=== PATIENT | male | born 2005 | race Caucasian/White ===

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

== ENCOUNTER 2024-06-02 12:56 | Emergency (ER) | payer OTHER, SELFPAY ==
[2024-06-02 13:19] VITALS: BP 109/72; PULSE 71; RESP 16; TEMP 37.1; O2SAT 99
--- NOTE | 2024-06-02 14:09 | ED_ITS ---
HPI - Ear Problem General Chief complaint: Ear Stated complaint: Ear pain/congestion History of Present Illness HPI Narrative: 19-year-old male here with complaints of difficulty hearing out of the right ear. Things that he could possibly have a cerumen impaction. Denies any pain, fever, body aches, chills. MD Complaint: decreased hearing Related Data Home Medications ?Medication ?Instructions ?Recorded ?Confirmed ?Last Taken ?Type No Home Medications 06/02/24 06/02/24 Unknown History Allergies Allergy/AdvReac Type Severity Reaction Status Date / Time No Known Allergies Allergy Verified 06/02/24 13:16 Review of Systems Review of Systems: All systems reviewed & are unremarkable except as noted in HPI and below Eyes: Eyes: Reports as per HPI ENT: Reports as per HPI Cardiovascular: Cardiovascular: Reports as per HPI Respiratory: Respiratory: Reports as per HPI Genitourinary: Genitourinary: Reports as per HPI Musculoskeletal: Musculoskeletal: Reports as per HPI Integumentary/Breasts: Skin/Breast: Reports as per HPI Neurologic: Reports as per HPI Psychiatric: Psychiatric: Reports as per HPI Endocrine: Endocrine: Reports as per HPI Hematologic/Lymphatic: Hematologic/Lymphatic: Reports as per HPI Allergic/Immunologic: Allergic/Immunologic: Reports as per HPI PMFSH Past Medical History Medical History Acute pharyngitis ADD (attention deficit disorder) ADHD (attention deficit hyperactivity disorder) Anxiety Appendix abscess Autism Autism spectrum disorder Back injury Has PT COVID-19 January of 2019 Ear infection as infant Low back pain Surgical History Surgical History No history of previous surgery Family History Family History Mother ADHD Hypertension Depression Anxiety Arthritis Fracture Grandparent Diabetes mellitus Social History Social History Smoking status: Current every day smoker Tobacco type: e-cigarettes/vaping Alcohol intake: never Substance use: current Substance use type: marijuana Lack of Transportation: No Lack of Food: Never True Current Housing: I Have Housing Concerned About Future Housing: No Difficulty Paying Gas/Electric Bills: No Difficulty Paying for Meds: No Currently Unemployed: No Education: High School Diploma/GED Difficulty w/ Childcare or Family Care: No Living arrangements: with family Occupation/Education: student Gender identity (if verbalized by the patient): Male Exam Const: General: cooperative, healthy appearing, comfortable, no acute distress and well developed Orientation/consciousness: patient oriented x3 HENMT: Head: normal to inspection Ears: TM's normal bilaterally (unable to visualize until After cerumen removal) Eyes: General: appearance normal, both eyes and all related structures Resp: Effort & Inspection: normal respiratory effort and able to speak in complete sentences Auscultation: clear to auscultation bilaterally Cardio: Rate: regular rate Rhythm: regular rhythm Heart sounds: S1 normal heart sound present and S2 normal heart sound present Skin: General skin exam: normal color Neuro: General: patient oriented x3 Cognition (Neuro): normal cognition Speech: normal speech Psych: Mental Status: mental status grossly normal Course Course Level of Care: Express Care Visit Vital Signs Vital signs: Vital Signs Temperature 98.8 F 06/02/24 13:19 Pulse Rate 71 06/02/24 13:19 Respiratory Rate 16 06/02/24 13:19 Blood Pressure 109/72 06/02/24 13:19 Pulse Oximetry 99 06/02/24 13:19 Temperature 98.8 F 06/02/24 13:19 Pulse Rate 71 06/02/24 13:19 Respiratory Rate 16 06/02/24 13:19 Blood Pressure 109/72 06/02/24 13:19 Pulse Oximetry 99 06/02/24 13:19 Procedures Ear Wax Removal Both Ears: Ear Wax Removal Date: 06/02/24 Ear Wax Removal Time: 13:50 Cerumenolytic Used: 5-10% Sodium Bicarb solution Results: Re-examined: some cerumen remains TM Examination: TM(s) intact, normal appearance Ear Canal Exam: atraumatic Patient Tolerated Procedure: well Complications: no problems Technique: ear canal irrigated and ear canal curetted Medical Decision Making MDM Narrative Medical decision making narrative: 19-year-old male HPI is noted. Differentials include but not limited to acute otitis media, acute otitis externa, cerumen impaction. Bilateral ears impacted with cerumen. Removed with curette and irrigation. A small amount of wax remains to right ear canal. Tympanic membranes bilaterally normal Vital Signs Vital Signs: Vital Signs Temperature 98.8 F 06/02/24 13:19 Pulse Rate 71 06/02/24 13:19 Respiratory Rate 16 06/02/24 13:19 Blood Pressure 109/72 06/02/24 13:19 Pulse Oximetry 99 06/02/24 13:19 Temperature 98.8 F 06/02/24 13:19 Pulse Rate 71 06/02/24 13:19 Respiratory Rate 16 06/02/24 13:19 Blood Pressure 109/72 06/02/24 13:19 Pulse Oximetry 99 06/02/24 13:19 Discharge Plan Discharge Clinical Impression: Bilateral impacted cerumen Patient Disposition: Home, Self-Care Condition: Stable Instructions: Antibiotic Form, Carbamide Peroxide (Into the ear) Additional Instructions: Use debrox nightly per package directions for the next week or until the rest of the ear wax has come out. Patient Language: Macedonian Prescriptions: No Action No Home Medications Follow-up/Referrals: Georgi Alicia MD [Primary Care Provider] - (if needed for ear irrigation) Time of Disposition: 14:12
== END 2024-06-02 14:15 | disposition home or self-care (01) ==
PROVIDERS: Emergency Provider Nurse Practitioner Family; PCP Family Medicine
DX: H61.23 Impacted cerumen, bilateral (principal); F17.290 Nicotine dependence, other tobacco product, uncomplicated; F84.0 Autistic disorder; Z86.16 Personal history of COVID-19
CPT/HCPCS: 69210; 99202; G0463

== ENCOUNTER 2024-07-10 17:37 | Emergency (ER) | payer OTHER, MEDICAID, SELFPAY ==
--- NOTE | 2024-07-10 17:42 | ED.URI ---
HPI - URI/Sore Throat General Chief Complaint: Upper Respiratory Infection Stated Complaint: RED THROAT/SINUS/EARS Time Seen by Provider: 07/10/24 17:42 Source: patient Mode of arrival: ambulatory Limitations: no limitations History of Present Illness HPI Narrative: Rafael is a 19-year-old male patient presenting to the clinic today with complaints of sore throat, nasal congestion, ear pain x3 days. He reports no known fevers, chills, body aches. Denies any chest pain shortness of breath. Related Data Home Medications ?Medication ?Instructions ?Recorded ?Confirmed ?Last Taken ?Type No Home Medications 06/02/24 06/02/24 Unknown History Allergies Allergy/AdvReac Type Severity Reaction Status Date / Time No Known Allergies Allergy Verified 07/10/24 17:43 Review of Systems Review of Systems: Pertinent positives per HPI. Patient denies any fever, chills, rash, headache, visual changes, dizziness, cough, shortness of breath, chest pain, palpitations, nausea, vomiting, diarrhea, constipation, abdominal pain, or any urinary issues. PMFSH Past Medical History Medical History Low back pain Appendix abscess ADD (attention deficit disorder) Autism Acute pharyngitis Ear infection as COVID-19 January of 2019 Anxiety Autism spectrum disorder ADHD (attention deficit hyperactivity disorder) Back injury Has PT Surgical History Surgical History No history of previous surgery Family History Family History Mother ADHD Hypertension Depression Anxiety Arthritis Fracture Grandparent Diabetes mellitus Social History Social History Smoking status: Current every day smoker Tobacco type: e-cigarettes/vaping Alcohol intake: never Substance use: current Substance use type: marijuana Lack of Transportation: No Lack of Food: Never True Current Housing: I Have Housing Concerned About Future Housing: No Difficulty Paying Gas/Electric Bills: No Difficulty Paying for Meds: No Currently Unemployed: No Education: High School Diploma/GED Difficulty w/ Childcare or Family Care: No Living arrangements: with family Occupation/Education: student Gender identity (if verbalized by the patient): Male Comments At the time of my signature, I reviewed and agree with the nursing past medical, surgical, social, and family history. There is no relevant family history pertinent to the patient complaint. Exam Narrative: General: Well-developed, well nourished, in no apparent distress Head: Normocephalic, atraumatic Eyes: Pupils equally round and reactive to light bilaterally, EOM intact, sclera and conjunctive clear, no discharge, lids normal Ears: TMs intact and clear, ear canals clear, no drainage, grossly hearing normal. Nose: Nares patent, clear nasal discharge, mild inflammation, no sinus tenderness. Mouth: Oral pharynx mildly red without lesions or masses, good dentition, MMM. Postnasal drip Neck: Supple, trachea midline, no enlargement of anterior or posterior cervical nodes, no thyroid masses or goiter palpable. Cardio: Regular rate and rhythm, s1 and s2 normal, no murmur appreciated. Resp: Clear to auscultation bilaterally, no rhonchi, rales, wheezing or rubs Course Course Emergency Course: Portions of this record may have been created with voice recognition software. Level of Care: Express Care Visit Vital Signs Vital signs: Vital Signs Temperature 36.6 C 07/10/24 17:43 Pulse Rate 82 07/10/24 17:43 Respiratory Rate 18 07/10/24 17:43 Blood Pressure 105/62 07/10/24 17:43 Pulse Oximetry 100 07/10/24 17:43 Oxygen Delivery Room Air 07/10/24 17:43 Temperature 36.6 C 07/10/24 17:43 Pulse Rate 82 07/10/24 17:43 Respiratory Rate 18 07/10/24 17:43 Blood Pressure 105/62 07/10/24 17:43 Pulse Oximetry 100 07/10/24 17:43 Oxygen Delivery Room Air 07/10/24 17:43 Vital signs reviewed MDM - URI/Sore Throat MDM Narrative Medical decision making narrative: At the time of visit patient is resting comfortably on the exam table. Patient appears to be nontoxic. Labs: COVID and strep test were performed and negative in the clinic today. We will send strep for culture. Plan: I suspect patient has URI/pharyngitis. Supportive measures were discussed with the patient and they voiced understanding discharge instructions and agrees to treatment plan. Return precautions reviewed Differential Diagnosis Differential diagnosis: Likely upper respiratory infection, otitis media, sinusitis, viral infection, bronchitis, influenza, pharyngitis and other (COVID) Lab Data Labs: Lab Results 07/10/24 Range/Units 17:52 POC SARS CoV-2 Ag Negative (Negative) POC Grp A Strep Screen Negative (Negative) Discharge Plan Discharge Clinical Impression: Upper respiratory infection Qualifiers: URI type: unspecified URI Qualified Code(s): J06.9 - Acute upper respiratory infection, unspecified Pharyngitis Qualifiers: Pharyngitis/tonsillitis etiology: unspecified etiology Qualified Code(s): J02.9 - Acute pharyngitis, unspecified Patient Disposition: Home Condition: Stable Instructions: Antibiotic Form, Pharyngitis (ED), Cold Symptoms (ED) Additional Instructions: COVID and strep test were negative in the clinic today. We will send strep for culture. Increase fluids and stay well hydrated Tylenol/motrin for pain/fever Flonase and OTC antihistamines as directed Vicks vapor rub to open sinuses Sinus rinses for congestion Cepacol spray, cough drops, throat lozenges, warm tea with honey/lemon, gargle salt water to soothe throat BRAT diet for diarrhea Clear liquids x 24 hours then advance as tolerated for nausea/vomiting Go to the ED if you develop a worsening in your condition- high fever not controlled by Tylenol or Motrin, dehydration, weakness, lethargy, shortness of breath, or chest pain. Follow up with your PCP in 3-5 days if symptoms persist. Patient Language: Occitan Prescriptions: No Action No Home Medications Follow-up/Referrals: Georgi Alicia MD [Primary Care Provider] - Time of Disposition: 18:32 Quality NIHSS Nursing Documentation ED NIHSS nursing documentation: reviewed/agree
[2024-07-10 17:43] VITALS: BP 105/62; PULSE 82; RESP 18; TEMP 36.6; O2SAT 100
[2024-07-10 18:13] LABS: EDCOVIDSCREEN Negative (Negative); EDSTREPNEGPOS1 Negative (Negative)
== END 2024-07-10 18:37 | disposition home or self-care (01) ==
PROVIDERS: Emergency Provider Nurse Practitioner Family; PCP Family Medicine
DX: J06.9 Acute upper respiratory infection, unspecified (principal); J02.9 Acute pharyngitis, unspecified; Z20.822 Contact with and (suspected) exposure to COVID-19; F17.290 Nicotine dependence, other tobacco product, uncomplicated; F84.0 Autistic disorder; Z86.16 Personal history of COVID-19
CPT/HCPCS: 87081; 87426; 87880; 99213; G0463

== ENCOUNTER 2024-07-23 04:29 | Emergency (ER) | payer OTHER, SELFPAY ==
--- NOTE | ~2024-07-23 | XR_ITS ---
AP and oblique views of the right ribs Clinical History: Pain Findings: No rib fracture is seen. Osseous alignment is anatomic. Lungs are clear, without focal cons olidation or pleural effusion. Cardiomediastinal contour is within normal limits. Soft tissues are un remarkable. Impression: No rib fracture is seen. Reviewed, dictated and finalized at [facility]. Impression: No rib fracture is seen.
--- NOTE | ~2024-07-23 | XR_ITS ---
Clinical Indication: Cough, pain PA and lateral views of the chest: Comparison: None Findings: The lungs are clear, without evidence of focal consolidation or pleural effusion. Cardiome diastinal silhouette is within normal limits. Bones and soft tissues are unremarkable. Impression: Normal chest. Reviewed, dictated and finalized at location . Impression: Normal chest.
[2024-07-23 04:31] VITALS: BP 101/81; PULSE 66; RESP 18; TEMP 36.6; O2SAT 99
--- OUTSIDE RECORDS SUMMARY | 2024-07-23 04:31 | XMS_ITS | Encounter Summary ---
Author Organization [facility] Address [facility] [place] [address] Care Team Providers Care Industrial Roofer Name Role Phone Georgi Alicia MD Primary Care Provider [phone] Encounter Details Date Type Department Care Team (Late st Contact Info) Description 10/06/2023 Therapy Plan [facility] [address] [place] [address] Katia Fierro Social History Tobacco Use Types Packs/Day Years Used Date Smoking Tobacco: Never Smokeless Tobacco: Never Alcohol Use Standard Drinks/Week Comments Not Currently 0 (1 standard drink = 0.6 oz pur e alcohol) Sex and Gender Information Value Date Recorded Sex Assigned at Not on file Legal Sex Male 4:57 PM CDT Gender Identity Not on file Sexual Orientation Not on file documented as of this encounter Functional Status * RETIRED Are you deaf or do you have serious difficulty hearing Answer Date of Assessment Author Status No 09/23/2021 6:00 PM CDT Activ e * RETIRED Are you blind or do you have serious difficulty seeing, even when wearing glasses? Answer Date of Assessment Author Status No 09/23/2021 6:00 PM CDT Activ e * Do you have serious difficulty walking or climbing stairs? Answer Date of Assessment Author Status No 09/23/2021 6:00 PM CDT Pastora Sosa RN Active * Do you have difficulty dressing or bathing? Answer Date of Assessment Author Status No 09/23/2021 6:00 PM ZAINT Pastora Sosa RN Active * Because of a physical, mental, or emotional condition, do you have difficulty doing errands alone such as visiting a doctor's office or shopping? Answer Date of Assessment Author Status No 09/23/2021 6:00 PM Pastora Ariza RN Active documented as of this encounter Mental Status * Because of a physical, mental, or emotional condition, do you have serious difficulty concentrating, remembering, or making decisions? Answer Entry Date Author Status No 09/23/2021 6:00 PM Pastora Ariza RN Active documented in this encounter Plan of Treatment Not on file documented as of this encounter Visit Diagnoses Diagnosis Rabies exposure- Primary Contact with or exposure to rabies documented in this encounter Care Teams Industrial Roofer Relationship Specialty Start Date End Date Georgi Alicia MD [address] [address] PCP - General FAMILY PRACTICE 10/05/23 documented as of this encounter
--- OUTSIDE RECORDS SUMMARY | 2024-07-23 04:31 | XMS_ITS | Patient Health Record ---
Author Organization [facility] Address [address] [place] [address] Care Team Providers Care Distribution Center Supervisor Name Role Phone Theodora Pierre Primary Care Provider ElizabethMiladis Unavailable [phone] Allergies No Known Allergies Reason For Referral No Information Medications Medication SIG (Take, Route, Fr equency, Duration) Notes Start Date End Date Status Lurasidone HCl 60 MG 1 tablet in the rickey ras with food Orally Once a day for 30 days Active Social History Tobacco Use: Social History Observation Description Date Details (start date - stop date) Never Smoker NA - NA Sex Assigned At : Social History Observation Description Sex Assigned At Male Dont use, Tobacco Use/Smoking Question Answer Notes Are you a nonsmoker Problems Problem Type SNOMED Code ICD Code Onset Dates Problem Status W/U Status Risk Notes Problem 56119022 Oppositional defiant disorder (F91.3) Active confirmed Problem 11915522 ADHD (attention deficit hyperactivity disorder), combined type (F90.2) Active confirmed Problem 927160043 Autism (F84.0) Active confirmed Problem Bipolar 2 disorder (33012548) Bipolar 2 disorder (F31.81) Active confirmed Plan Of Treatment No Information Insurance Providers Payer Name Payer Address Payer Phone Subscriber Number Group Number Insured Name Patient Relationship to Insured Coverage Start Date Coverage End Date [facility] Att[facility] Claims Department [address] [place] [phone] [id number] Rafael Merritt Self - patient is the insured 1 [facility] Attn Claims Department [address] [place] [address] [phone] Rafael Merritt Self - patient is the insured 1 Medical (General) History Surgical History Surgery Date(Month/Year) appendectomy
--- OUTSIDE RECORDS SUMMARY | 2024-07-23 04:32 | XMS_ITS | Clinical Summary ---
Author Organization [facility] Address [address] [facility] [place] [address] Care Team Providers Care Claim Rep Name Role Phone Hyun Shankar MD Primary Care Provider Abdon Faulkner PA-C Unavailable [phone] Source Comments [facility],non-owned Affiliates and Associated Physician Practices is amultiple site organization consisting of ambulatory clinics and hospital sitesin [place], [place], [place] and [place]. This disclosure is being madepursuant to the Care Everywhere program and may not contain all information available regarding this patient. Last updated 17.[facility] Allergies No known active allergies Medications * This document contains information received from the source organization and may not represent a complete record from that organization. * Be aware that medications may not be up to date on this document. Alwaysverify current medications with the patient. lisdexamfetamin e (VYVANSE) 60 MG capsule Take 60 mg by mouth once daily Active RisperiDONE (RISPERDAL PO) Take 0.5 mg by mouth Active benzoyl peroxide (BENZOYL PEROXIDE) 10 % wash Use to wash face, back and chest daily. 140 g 2 06/07/2018 Active hydrOXYzine hcl (ATARAX) 25 MG tablet Take 25 mg by mouth 4 times daily as needed for Itching Active Active Problems Problem Noted Date Diagnosed Date Hand injury, right, initial encounter 08/12/2020 Chronic midline thoracic back pain 07/14/2020 Assessment & Plan (07/14/2020 3:31 PM CDT): PLAN: 1. Questions solicited and answered. 2. Continue with existing conservative treatment program. Continue PT focusing on hamstring stretching 3. Medications Prescribed: none 4. Activity Restrictions: none 5. Weightbearing status: No Restrictions 6. Follow up: in 3 month(s) without X-rays for telemedicine visit Stiffness of left hand joint 08/18/2018 Closed nondisplaced fracture of proximal phalanx of left thumb 06/23/2018 Acne 06/07/2018 Overview (06/07/2018): 06/07/18 mod on face, chest, back; sparing and intermittent use of OTC acne treatments; rec. OTC Differin and rx. for BPO wash Viral wart 06/07/2018 Overview (06/07/2018): 06/07/18 R ear, cryo followed by SA or gardomenica, anticipatory guidance Multiple nevi 06/07/2018 Overview (06/07/2018): 06/07/18 > average amount; no rapid growth or changes, no worrisome features Breast bud, abnormal 03/02/2016 RENATO (obstructive sleep apnea) 08/07/2014 Overview (11/30/2015): CPAP titration 11/15/15 6 cmH20 diag psg 08/01/13 SUMMARY RDI Min SaO2 2.6 93.0% AHI: 2.6 Obstructive AHI: 1.9 The patient was not able to keep the nasal pressure in place most of the study which likely resulted in a significant underestimation of the severity of the patient s RENATO. Autistic spectrum disorder 01/19/2013 Premature ventricular contractions (PVCs) (VPCs) 11/04/2012 ADHD (attention deficit hyperactivity disorder) 05/13/2009 Overview (11/07/2015): If speak to school nurse, please call mom Resolved Problems Problem Noted Date Diagnosed Date Resolved Date Autistic disorder 01/21/2012 09/15/2012 Immunizations Immunization Administration Dates Next Due INFLUENZA VACCINE, TRIV. (AF LURIA, FLUZONE TRIVALENT; 6MO+) (IIV3) 02/03/2010 DTaP VACCINE IM (6wk-6yrs) 09/02/2008,,2003,08/27,2003 FLU VACCINE TRI IIV3 SPLIT P F IM (FLUVIRIN) 02/19/2013 HEP A PEDS 2 DOSE 09/02/2014,05/13/2009 05/13/19 11 HEP B VACCINE, PED/ADOL 02/19/2004,2003, HIB BOOSTER 09/02/2008, 5,02/19/2004,10/26,2003 Human Papilloma Virus Jay valent Vaccine 11/07/2015,09/02/2014 MENINGOCOCCAL ACWY (MCV4P) VAC IM 09/02/2014 MMR 09/02/2008,08/25/2004 PNEUMOCOCCAL CONJ, PEDS 11/25/2004,02/25/2004 POLIO IPV 09/02/2008, 4,2003,07/26 PPD 05/11/2004 TDAP (7yrs+) 09/02/2014 VARICELLA 09/02/2008,08/25/2004 Family History Medical History Relation Name Comments Asthma Brother Diabetes Maternal Grandfather [place]<55(male) Maternal Grandfather Asthma Mother Psoriasis Mother Arthritis Paternal Grandfather Anesthesia Reaction Neg Hx Arrhythmia Neg Hx CVA<55(male) Neg Hx CVA<65(female) Neg Hx Cancer - Skin, Melanoma Neg Hx Cancer - Skin, Non Melanoma Neg Hx Cardiomyopathy Neg Hx Congenital Heart defect Neg Hx Eczema Neg Hx Heart Surgery Neg Hx Hyperlipidemia Neg Hx Long QT Syndrome Neg Hx [place]<65(female) Neg Hx Marfan Syndrome Neg Hx Pacemaker Neg Hx Relation Name Status Comments Brother Maternal Grandfather Mother Paternal Grandfather Social History Tobacco Use Types Packs/Day Years Used Date Smoking Tobacco: Never Smokeless Tobacco: Never Alcohol Use Standard Drinks/Week Comments Not Asked 0 (1 standard drink = 0.6 oz pur e alcohol) Sex and Gender Information Value Date Recorded Sex Assigned at Not on file Legal Sex Male 8:27 AM CDT Gender Identity Not on file Sexual Orientation Not on file Last Filed Vital Signs Vital Sign Reading Time Taken Comments Blood Pressure 98/48 07/14/2020 2:52 PM CDT Pulse 84 04/27/2018 2:03 PM STERILE TECH Temperature 36.6 C (97.8 F) 04/27/2016 7:52 PM STERILE TECH Respiratory Rate 16 04/27/2018 2:03 PM STERILE TECH Oxygen Saturation 98% 04/27/2018 2:03 PM STERILE TECH Inhaled Oxygen Concentration - - Weight 63.3 kg (139 lb 8.8 oz) 08/12/2020 10:45 AM CDT Height 174.5 cm (5' 8.7 ) 08/12/2020 10:45 AM CD T Body Mass Index 20.79 08/12/2020 10:45 AM CDT Plan of Treatment Health Maintenance Due Date Last Done Comments HIV SCREENING 2018 MENINGOCOCCAL (Group B) VACCINE SHARED DECISION-MAKING (1 of 2 - Standard) 2019 HEPATITIS C SCREENING 05/05/2021 COVID-19 VACCINE (1 - season) 2023 DEPRESSION SCREENING 03/28/2024 DTAP/TDAP/TD VACCINES (7 - Td or Tdap) 09/02/2024 09/02/2014, 09/02/2008, 11/25/2004, Additional history exists INFLUENZA VACCINE (Season Ended) 2024 02/19/2013, 02/03/2010 ZOSTER VACCINE (1 of 2) 2053 HEPATITIS B VACCINE Completed 02/19/2004, 2003, 2003 PNEUMOCOCCAL VACCINE Aged Out 11/25/2004, 02/25/20 04 No longer eligible based on patient's age to complete this topic HIB VACCINE Completed 09/02/2008, 10/28, 02/19/2004, Additional history exists MENINGOCOCCAL GROUPS A/C/Y/W VACCINE Aged Out 09/02/2014 No longer eligible based on patient's age to complete this topic HPV VACCINE Completed 11/07/2015, 09/02/2014 Goals Goal Patient Goal Type Associated Problems Recent Progress Patient-Stated? Author Use safety retraint in car Lifestyle On track( 016 2:55 PM CDT) Brinda Gipson RN Insurance [facility] * Guarantor: RAFAEL MERRITT Account Type Relation to Patient Date of Phone Billing Address Personal/Family 2005 [address] [place] [address] Care Teams Claim Rep Relationship Specialty Start Date End Date Hyun Shankar MD [address] [place] [address] PCP - General Pediatrics 07/14/20 Abdon Faulkner PA-C [address] [place] [address] Orthopedic 08/12/20
--- OUTSIDE RECORDS SUMMARY | 2024-07-23 04:32 | XMS_ITS | Clinical Summary ---
Author Organization [facility] Address [facility] [place] [address] Care Team Providers Care Public Works Commissioner Name Role Phone Georgi Alicia MD Primary Care Provider [phone] Allergies No known active allergies Medications HYDROcodone-sol taminophen 5-325 MG tabletIndicatio ns:Acute Pain < 3 Day Supply,Acute Pain < 7 Day Supply Take 1 tablet by mouth every 6 (six) hours as needed. Indications: Acute Pain < 3 Day Supply, Acute Pain < 7 Day Supply 14 tablet 09/24/2021 Active risperiDONE 1 MG tablet Take 1 tablet by mouth nightly at bedtime. Active sertraline 100 MG tablet Take 1 tablet by mouth daily. Active Active Problems Problem Noted Date Diagnosed Date Rabies exposure 10/06/2023 Status post laparoscopic appendectomy 10/07/2021 Immunizations Immunization Administration Dates Next Due Rabies (Rabavert) 10/19/2023,10/12/2023,10/08/19 24,10/05/2023 Social History Tobacco Use Types Packs/Day Years Used Date Smoking Tobacco: Never Smokeless Tobacco: Never Tobacco Cessation:Counseling Given: No Alcohol Use Standard Drinks/Week Comments Not Currently 0 (1 standard drink = 0.6 oz pur e alcohol) Sex and Gender Information Value Date Recorded Sex Assigned at Not on file Legal Sex Male 4:57 PM CDT Gender Identity Not on file Sexual Orientation Not on file Last Filed Vital Signs Vital Sign Reading Time Taken Comments Blood Pressure 108/52 11/03/2023 8:45 PM CDT Pulse 59 11/03/2023 8:45 PM CDT Temperature 36.6 C (97.8 F) 11/03/2023 8:45 PM CDT Respiratory Rate 16 11/03/2023 8:45 PM CDT Oxygen Saturation 99% 11/03/2023 8:45 PM CDT Inhaled Oxygen Concentration - - Weight 63.5 kg (140 lb) 11/03/2023 7:19 PM CDT Height 177.8 cm (5' 10 ) 11/03/2023 7:19 PM CDT Body Mass Index 20.09 11/03/2023 7:19 PM CDT Plan of Treatment Health Maintenance Due Date Last Done Comments Annual Physical 2006 Meningococcal B Vaccine (1 of 2 - Standard) 2019 Hepatitis C 2021 COVID-19 Vaccine (3 - season) 2023 11/26/2020, 10/27/2020 DTaP, Tdap and Td Vaccines (8 - Td or Tdap) 11/01/2027 10/31/2017, 09/02/2014, 09/02/2008, Additional history exists Hepatitis B Vaccines Completed 02/19/2004, 2003, 2003 Pneumococcal Vaccine: Pediatrics (0 to 5 Years) and At-Risk Patients (6 to 49 Years) Aged Out 11/25/2004, 02/25/2004, 2003 No longer eligible based on patient's age to complete this topic HPV Vaccines Completed 01/10/2017, 10/26, 09/02/2014 Meningococcal Vaccine Completed 02/11/2020, 015 RSV Immunizations Under 20 Months Aged Out No longer eligible based on patient's age to complete this topic Insurance MEDICAID Care Teams Public Works Commissioner Relationship Specialty Start Date End Date Georgi Alicia MD [address] [address] PCP - General FAMILY PRACTICE 10/05/23
--- OUTSIDE RECORDS SUMMARY | 2024-07-23 04:54 | XMS_ITS | Encounter Summary ---
Author Organization [facility] Address [facility] [place] [address] Care Team Providers Care Import/Export Freight Forwarder Name Role Phone Georgi Alicia MD Primary Care Provider [phone] Encounter Details Date Type Department Care Team (Late st Contact Info) Description 10/06/2023 Therapy Plan [facility] [address] [place] [address] Katia Fierro Social History Tobacco [...] rabies documented in this encounter Care Teams Import/Export Freight Forwarder Relationship Specialty Start Date End Date Georgi Alicia MD [address] [place] [address] PCP - General FAMILY PRACTICE 10/05/23 documented as of this encounter
--- OUTSIDE RECORDS SUMMARY | 2024-07-23 04:54 | XMS_ITS | Clinical Summary ---
Author Organization [facility] Address [address] [facility] [place] [address] Care Team Providers Care Supervisor Of Instruction Name Role Phone Hyun Shankar MD Primary Care Provider Abdon Faulkner PA-C Unavailable [phone] Source Comments [facility],non-owned Affiliates and Associated Physician Practices is amultiple site organization consisting of ambulatory clinics and hospital sitesin [place], [place], [place] and [place]. This disclosure is being madepursuant to the Care Everywhere program and may not contain all information available regarding this patient. Last updated 17.[facility] Allergies No known active allergies Medications * [...] Name Comments Asthma Brother Diabetes Maternal Grandfather [place]<55(male) Maternal Grandfather Asthma Mother Psoriasis Mother Arthritis Paternal Grandfather Anesthesia Reaction Neg Hx Arrhythmia Neg Hx CVA<55(male) Neg Hx CVA<65(female) Neg Hx Cancer - Skin, Melanoma Neg Hx Cancer - Skin, Non Melanoma Neg Hx Cardiomyopathy Neg Hx Congenital Heart defect Neg Hx Eczema Neg Hx Heart Surgery Neg Hx Hyperlipidemia Neg Hx Long QT Syndrome Neg Hx [place]<65(female) Neg Hx Marfan Syndrome Neg Hx Pacemaker [...] PM CDT Pulse 84 04/27/2018 2:03 PM A R SPECIALIST Temperature 36.6 C (97.8 F) 04/27/2016 7:52 PM A R SPECIALIST Respiratory Rate 16 04/27/2018 2:03 PM A R SPECIALIST Oxygen Saturation 98% 04/27/2018 2:03 PM A R SPECIALIST Inhaled Oxygen Concentration - - Weight 63.3 [...] 2:55 PM CDT) Brinda Gipson RN Insurance [facility] * Guarantor: RAFAEL MERRITT Account Type Relation to Patient Date of Phone Billing Address Personal/Family 2005 [address] [place] [address] Care Teams Supervisor Of Instruction Relationship Specialty Start Date End Date Hyun Shankar MD [address] [place] [address] PCP - General Pediatrics 07/14/20 Abdon Faulkner PA-C [address] [place] [address] Orthopedic 08/12/20
--- OUTSIDE RECORDS SUMMARY | 2024-07-23 04:54 | XMS_ITS | Clinical Summary ---
Author Organization [facility] Address [facility] [place] [address] Care Team Providers Care Product Safety Tester Name Role Phone Georgi Alicia MD Primary Care Provider [phone] Allergies No known active allergies Medications HYDROcodone-sol [...] complete this topic Insurance MEDICAID Care Teams Product Safety Tester Relationship Specialty Start Date End Date Georgi Alicia MD [address] [address] PCP - General FAMILY PRACTICE 10/05/23
--- NOTE | 2024-07-23 05:18 | ED_ITS ---
HPI - General Adult General Chief complaint: Unspecified Stated complaint: side pain Time Seen by Provider: 07/23/24 04:33 Source: patient Mode of arrival: ambulatory Limitations: no limitations History of Present Illness HPI narrative: Patient is a 19-year-old male with right axilla pain after coughing and was smoking prior to the event. Onset (ago): hour(s) ( 3-4) Location: right ( axilla) Radiation: non-radiation Severity: mild Severity scale (1-10): 3 Quality: sharp Pain Consistency: intermittent Relieving factors: immobilization Exacerbating factors: movement and other ( palpation) Associated symptoms: denies other symptoms Treatments prior to arrival: none Related Data Home Medications ?Medication ?Instructions ?Recorded ?Confirmed ?Last Taken ?Type No Home Medications 06/02/24 07/23/24 Unknown History Allergies Allergy/AdvReac Type Severity Reaction Status Date / Time No Known Allergies Allergy Verified 07/23/24 04:39 Review of Systems Review of Systems: All systems reviewed & are unremarkable except as noted in HPI and below Constitutional: Constitutional: Reports no additional constitutional com plaints Eyes: Eyes: Reports no additional eye complaints ENT: Reports system reviewed and no additional complaints, except as documented Cardiovascular: Cardiovascular: Reports no additional cardiovascular complaints Respiratory: Respiratory: Reports no additional respiratory complaints Gastrointestinal: Gastrointestinal: Reports no additional gastrointestinal complaints Genitourinary: Genitourinary: Reports no additional male genitourinary complaints Musculoskeletal: Musculoskeletal: Reports no additional musculoskeletal complaints Integumentary/Breasts: Skin/Breast: Reports system reviewed and no additional complaints, except as docu Neurologic: Reports system reviewed and no additional complaints, except as documented Psychiatric: Psychiatric: Reports no additional psychiatric complaints Endocrine: Endocrine: Reports no additional endocrine complaints Hematologic/Lymphatic: Hematologic/Lymphatic: Reports no additional hematologic/lymphatic complaints Allergic/Immunologic: Allergic/Immunologic: Reports no additional allergic/immunologic complaints PMFSH Past Medical History Medical History Low back pain Appendix abscess ADD (attention deficit disorder) Autism Acute pharyngitis Ear infection as infant COVID-19 January of 2019 Anxiety Autism spectrum disorder ADHD (attention deficit hyperactivity disorder) Back injury Has PT Surgical History Surgical History No history of previous surgery Family History Family History Mother ADHD Hypertension Depression Anxiety Arthritis Fracture Grandparent Diabetes mellitus Social History Social History Smoking status: Current every day smoker Tobacco type: e-cigarettes/vaping Alcohol intake: never Substance use: current Substance use type: marijuana Lack of Transportation: No Lack of Food: Never True Current Housing: I Have Housing Concerned About Future Housing: No Difficulty Paying Gas/Electric Bills: No Difficulty Paying for Meds: No Currently Unemployed: No Education: High School Diploma/GED Difficulty w/ Childcare or Family Care: No Living arrangements: with family Occupation/Education: student Gender identity (if verbalized by the patient): Male Exam Const: General: cooperative, healthy appearing and comfortable HENMT: Head: normal to inspection, No palpable skull fracture present and normocephalic Eyes: General: appearance normal, both eyes and all related structures Visual Uribe: normal visual uribe by confrontation Alignment and Position: alignment normal Neck: Neck: normal visual inspection, full ROM and no lymphadenopathy Chest: Chest palpation & inspection: normal inspection of the chest, abnormal palpation of chest wall and normal inspection of the chest Other: tender right axilla around the 5th and 6th rib region without deformity or step-offs Resp: Effort & Inspection: normal respiratory effort, able to speak in complete sentences and normal respiratory pattern Cardio: Jugular venous distension: no JVD Palpation: normal PMI Rate: regular rate Rhythm: regular rhythm Heart sounds: S1 normal heart sound present and S2 normal heart sound present GI: Inspection: normal to inspection, no abdominal wall ecchymosis and no edema Back/Spine/Pelvis: Back: no CVA tenderness, No CVA tenderness, No mass and No erythema Skin: General skin exam: normal color, no rashes or lesions noted and elasticity normal Neuro: General: patient oriented x3, gait normal, tone normal and moves all extremities Extrem: General: normal to inspection, full ROM and capillary refill normal Psych: Appearance: grossly normal, well kempt and not disheveled Mental Status: mental status grossly normal Course Vital Signs Vital signs: Vital Signs Temperature 36.6 C 07/23/24 04:31 Pulse Rate 66 07/23/24 04:31 Respiratory Rate 18 07/23/24 04:31 Blood Pressure 101/81 07/23/24 04:31 Pulse Oximetry 99 07/23/24 04:31 Oxygen Delivery Room Air 07/23/24 04:31 Temperature 36.6 C 07/23/24 04:31 Pulse Rate 66 07/23/24 04:31 Respiratory Rate 18 07/23/24 04:31 Blood Pressure 101/81 07/23/24 04:31 Pulse Oximetry 99 07/23/24 04:31 Oxygen Delivery Room Air 07/23/24 04:31 Medical Decision Making MDM Narrative Medical decision making narrative: patient is a 19-year-old male with right axilla pain after coughing this morning. We will do an x-ray of the chest as well as ribs on the right. Vital Signs Vital Signs: Vital Signs Temperature 36.6 C 07/23/24 04:31 Pulse Rate 66 07/23/24 04:31 Respiratory Rate 18 07/23/24 04:31 Blood Pressure 101/81 07/23/24 04:31 Pulse Oximetry 99 07/23/24 04:31 Oxygen Delivery Room Air 07/23/24 04:31 Temperature 36.6 C 07/23/24 04:31 Pulse Rate 66 07/23/24 04:31 Respiratory Rate 18 07/23/24 04:31 Blood Pressure 101/81 07/23/24 04:31 Pulse Oximetry 99 07/23/24 04:31 Oxygen Delivery Room Air 07/23/24 04:31 Imaging Data Attestation: I personally reviewed and interpreted this imaging study as follows: My impression: chest x-ray is clear without acute process ( this is my reading and pending final study) Radiologist's impression: right ribs x-ray are negative for acute process Discharge Plan Discharge Clinical Impression: Rib sprain Qualifiers: Encounter type: initial encounter Qualified Code(s): S23.41XA - Sprain of ribs, initial encounter Patient Disposition: Home Condition: Stable Instructions: Rib Contusion (ED) Patient Language: Albanian Prescriptions: No Action No Home Medications Follow-up/Referrals: Georgi Alicia MD [Primary Care Provider] - Time of Disposition: 06:51
[2024-07-23] MEDS: IBUPROFEN 600 MG TABLET PO (06:59)
== END 2024-07-23 07:02 | disposition home or self-care (01) ==
PROVIDERS: Emergency Provider Emergency Medicine; PCP Family Medicine
DX: S23.41XA Sprain of ribs, initial encounter (principal); F17.290 Nicotine dependence, other tobacco product, uncomplicated; X58.XXXA Exposure to other specified factors, initial encounter
CPT/HCPCS: 71046; 71100; 99283; A9270

== ENCOUNTER 2024-08-31 08:40 | Outpatient (CLI) | payer OTHER, SELFPAY ==
--- NOTE | ~2024-08-31 | XR_ITS ---
[XR ribs RT 2V w CXR 2V ] INDICATION: Pleurodynia. Chest pain. TECHNIQUE: Frontal projection of the upper right ribs, frontal projection of the lower right ribs, ob lique projection of all the right ribs, frontal inspiratory chest x-ray for interpretation. FINDINGS: Healing right sixth rib fracture present. No acute fractures identified. Heart size normal. There are no soft tissue abnormality seen. The lungs are clear. No pneumothorax. IMPRESSION: 1: Healing right sixth rib fracture, likely subacute. Reviewed, dictated and finalized at location A.
--- OUTSIDE RECORDS SUMMARY | 2024-08-31 08:45 | XMS_ITS | Patient Health Record ---
Author Organization [facility] Address [address] [place] [address] Care Team Providers Care Machine Assembler For Puller Over Name Role Phone Theodora Pierre Primary Care Provider ElizabethMiladis Unavailable [phone] Allergies No Known Allergies Reason For Referral [...] Problem Status W/U Status Risk Notes Problem [id number] Oppositional defiant disorder (F91.3) Active confirmed Problem [id number] ADHD (attention deficit hyperactivity disorder), combined type (F90.2) Active confirmed Problem [id number] Autism (F84.0) Active confirmed Problem Bipolar 2 disord er (F31.81) Active confirmed Plan Of Treatment No Information Insurance Providers Payer Name Payer Address Payer Phone Subscriber Number Group Number Insured Name Patient Relationship to Insured Coverage Start Date Coverage End Date [facility] Attn Claims Department [address] [place] [address] [id number] Rafael Merritt Self - patient is the insured 1 [facility] [employer] Attn Claims Department [address] [place] [address] [phone] [id number] Rafael Merritt Self - patient is the insured 1 Medical (General) History Surgical History Surgery Date(Month/Year) appendectomy
--- OUTSIDE RECORDS SUMMARY | 2024-08-31 08:45 | XMS_ITS | Clinical Summary ---
Author Organization [facility] [employer] Address [address] [place] [address] Care Team Providers Care Survey Coordinator Name Role Phone Hyun Shankar MD Primary Care Provider Abdon Faulkner PA-C Unavailable [phone] Source Comments [facility],non-owned Affiliates and Associated Physician Practices is amultiple site organization consisting of ambulatory clinics and hospital sitesin [place], [place], [place] and [place]. This disclosure is being madepursuant to the Care Everywhere program and may not contain all information available regarding this patient. Last updated 17.[facility] [employer] Allergies No known active allergies Medications * [...] Name Comments Asthma Brother Diabetes Maternal Grandfather NC<55(male) Maternal Grandfather Asthma Mother Psoriasis Mother Arthritis Paternal Grandfather Anesthesia Reaction Neg Hx Arrhythmia Neg Hx CVA<55(male) Neg Hx CVA<65(female) Neg Hx Cancer - Skin, Melanoma Neg Hx Cancer - Skin, Non Melanoma Neg Hx Cardiomyopathy Neg Hx Congenital Heart defect Neg Hx Eczema Neg Hx Heart Surgery Neg Hx Hyperlipidemia Neg Hx Long QT Syndrome Neg Hx NC<65(female) Neg Hx Marfan Syndrome Neg Hx Pacemaker [...] PM CDT Pulse 84 04/27/2018 2:03 PM ADMINISTRATIVE ASSISTANT OFFICE MANAGER Temperature 36.6 C (97.8 F) 04/27/2016 7:52 PM ADMINISTRATIVE ASSISTANT OFFICE MANAGER Respiratory Rate 16 04/27/2018 2:03 PM ADMINISTRATIVE ASSISTANT OFFICE MANAGER Oxygen Saturation 98% 04/27/2018 2:03 PM ADMINISTRATIVE ASSISTANT OFFICE MANAGER Inhaled Oxygen Concentration - - Weight 63.3 kg (139 lb 8.8 oz) 08/12/2020 10:45 AM CDT Height 174.5 cm (5' 8.7) 08/12/2020 10:45 AM CD T Body Mass [...] 2:55 PM CDT) Brinda Gipson RN Insurance [facility] * Guarantor: RAFAEL MERRITT Account Type Relation to Patient Date of Phone Billing Address Personal/Family [address] [place] [address] Care Teams Survey Coordinator Relationship Specialty Start Date End Date Hyun Shankar MD [address] [place] [id number] PCP - General Pediatrics 07/14/20 Abdon Faulkner PA-C [address] [place] [address] Orthopedic 08/12/20
== END 2024-08-31 08:41 | disposition home or self-care (01) ==
LOC: CHSIMG 08:43
PROVIDERS: PCP Family Medicine; Visit Provider Nurse Practitioner Adult Health
DX: R07.81 Pleurodynia (principal); S22.31XD Fracture of one rib, right side, subsequent encounter for fracture with routine healing
CPT/HCPCS: 71046; 71100

== ENCOUNTER 2025-01-16 00:31 | Day surgery (SDC) | payer OTHER, SELFPAY ==
[2025-01-14 15:30] VITALS: BMI 22.1
--- NOTE | 2025-01-14 15:38 | PC.NURSE ---
[facility] has started construction of its new state of the art ER which will open Spring 2026. With this, we anticipate parking may be a challenge for some our surgical patients and families. Parking spaces are limited but are available for all Surgical, obstetrics, and ER patients sharing this lot. If you arrive and find you are having a hard time finding a parking space, please note that we understand the challenges, please drive around the hospital and park near Hospital Entrance 1. When you enter this entrance, you can ask a volunteer to direct or take you back to the surgical waiting area to check in. We appreciate everyone?s understanding of these expected challenges while we build for your future. Report to the Outpatient Waiting Room, entrance under the green pavilion located off [address], at time _1100_ on date _[id number]_. Planned Procedure Time: _1pm_.? Time changes happen often and if your time is changed the preop area will call you the afternoon before. - You and your visitor will be asked to self-screen and do not enter if you have any COVID symptoms. Please call surgeon if you need to reschedule. - A mask is optional within the hospital at this time. Patients may have clear liquids (water, carbonated beverages, clear teas, apple juice) until 3 hours prior to surgery with a maximum of 20 ounces. - No food from midnight until time of surgery and no smoking, or chewing tobacco (or any form of nicotine). No chewing gum, candy or mints. Take only the following medications with a SIP of water on the morning of surgery: __None DO NOT STOP ANY OF YOUR OTHER PRESCRIPTION MEDICATIONS PRIOR TO SURGERY EXCEPT THE FOLLOWING Hold all vitamins and supplements for 3 days per anesthesiologist. Medications to discontinue per physician Date to take last dose Please no make-up, nail danish, hairspray, perfume, deodorant, or body powder the day of surgery.? No jewelry (including any body piercings) or valuables the day of surgery, leave them at home.? Please take a shower or bath the night before, or the morning of, surgery with an antibacterial soap.? Wear comfortable, loose fitting clothing.? - Jewelry must be removed prior to entering the operating room.? Rings and piercings that are not removed may be cut off. - The hospital will not accept responsibility for valuables.? - Please leave all valuables, including medications, at home the day of surgery. If you are going home after surgery, a licensed refrigerated national truck driver must drive you home.? - NO public transportation without another adult if you receive anesthesia. - We recommend that an adult stay with you for 24 hours following discharge. - We also recommend that you do not drive, make important decision, drink alcoholic beverages, or take any drugs that were not prescribed by your health care provider for at least 24 hours after your discharge time. Follow any additional instructions given to you from your surgeon. Telephone instructions given to __Liu/ Arias__and asked if any additional questions and then verbalized understanding. Patient advised to call surgeon office or pre surgery nurse liaison [phone] if any additional questions.
--- NOTE | 2025-01-14 15:44 | PC.NURSE ---
[facility] has started construction of its new state of the art ER which will open Spring 2026. With this, we anticipate parking may be a challenge for some our surgical patients and families. Parking spaces are limited but are available for all Surgical, obstetrics, and ER patients sharing this lot. If you arrive and find you are having a hard time finding a parking space, please note that we understand the challenges, please drive around the hospital and park near Hospital Entrance 1. When you enter this entrance, you can ask a volunteer to direct or take you back to the surgical waiting area to check in. We appreciate everyone?s understanding of these expected challenges while we build for your future. Report to the Outpatient Waiting Room, entrance under the green pavilion located off [address], at time _1100_ on date _[phone]_. Planned Procedure Time: _1pm_.? Time changes happen often and if your time is changed the preop area will call you the afternoon before. - You and your visitor will be asked to self-screen and do not enter if you have any COVID symptoms. Please call surgeon if you need to reschedule. - A mask is optional within the hospital at this time. May have clear liquids (water, carbonated beverages, clear teas, apple juice) until 5am prior to surgery with a maximum of 20 ounces. Nothing to drink after 5am. - No food from midnight until time of surgery and no smoking, or chewing tobacco (or any form of nicotine). No chewing gum, candy or mints. Take only the following medications with a SIP of water on the morning of surgery: __None DO NOT STOP ANY OF YOUR OTHER PRESCRIPTION MEDICATIONS PRIOR TO SURGERY EXCEPT THE FOLLOWING Hold all vitamins and supplements for 3 days per anesthesiologist. Medications to discontinue per physician Date to take last dose Please no make-up, nail german, hairspray, perfume, deodorant, or body powder the day of surgery.? No jewelry (including any body piercings) or valuables the day of surgery, leave them at home.? Please take a shower or bath the night before, or the morning of, surgery with an antibacterial soap.? Wear comfortable, loose fitting clothing.? - Jewelry must be removed prior to entering the operating room.? Rings and piercings that are not removed may be cut off. - The hospital will not accept responsibility for valuables.? - Please leave all valuables, including medications, at home the day of surgery. If you are going home after surgery, a licensed regional flatbed truck driver must drive you home.? - NO public transportation without another adult if you receive anesthesia. - We recommend that an adult stay with you for 24 hours following discharge. - We also recommend that you do not drive, make important decision, drink alcoholic beverages, or take any drugs that were not prescribed by your health care provider for at least 24 hours after your discharge time. Follow any additional instructions given to you from your surgeon. Telephone instructions given to __Liu/ Arias__and asked if any additional questions and then verbalized understanding. Patient advised to call surgeon office or pre surgery nurse liaison [phone] if any additional questions.
[2025-01-16] VITALS (11 sets, daily range): BP systolic 91–151; BP diastolic 49–82; PULSE 52–77; RESP 18–19; TEMP 36.1–36.8; O2SAT 97–100
--- NOTE | 2025-01-16 06:58 | P.HP_ITS ---
History of Present Illness History of Present Illness Chief complaint: Localized swelling mass on head Narrative: Patient seen and examined in pre-operative holding area. No interval change in medical history or symptoms. Patient recalls previous discussion of benefits and alternatives to procedure. Continues to desire to proceed with right cheek mass excision. Reviewed procedure, post-op expectations and risks including but not limited to bleeding, infection,undesireable cosmetic appearance, recurrence. I discussed the possible use of assistants and their participation in the case. Patient stated understanding and signed the consent form wishing to proceed. Review of Systems Review of Systems: All systems reviewed & are unremarkable except as noted in HPI and below PMFSH Past Medical History Medical History Rib pain on right side Mass of face Low back pain Appendix abscess ADD (attention deficit disorder) Autism Acute pharyngitis Ear infection as COVID-19 January of 2019 Anxiety Autism spectrum disorder ADHD (attention deficit hyperactivity disorder) Back injury Has PT Surgical History Surgical History No history of previous surgery Family History Family History Mother ADHD Hypertension Depression Anxiety Arthritis Fracture Grandparent Diabetes mellitus Social History Social History Smoking status: Never smoker Tobacco type: e-cigarettes/vaping Alcohol intake: never Substance use: current Substance use type: marijuana Other substance usage details: vape Lack of Transportation: No Lack of Food: Never True Current Housing: I Have Housing Concerned About Future Housing: No Difficulty Paying Gas/Electric Bills: No Difficulty Paying for Meds: No Currently Unemployed: No Education: High School Diploma/GED Difficulty w/ Childcare or Family Care: No Living arrangements: with family Occupation/Education: student Gender identity (if verbalized by the patient): Male Spiritual care concerns: No Meds Home Medications and Allergies Home Medications ?Medication ?Instructions ?Recorded ?Confirmed ?Type No Home Medications 06/02/24 01/16/25 H istory Allergies Allergy/AdvReac Type Severity Reaction Status Date / Time No Known Allergies Allergy Verified 01/16/25 08:56 Exam Narrative: unchanged Assessment and Plan Assessment and plan (1) Mass of face: Code(s): R22.0 - Localized swelling, mass and lump, head Status: Acute Assessment and Plan: cont as above
--- NOTE | 2025-01-16 06:59 | W.PM.PROC2 ---
Procedure Note - Detailed Date of Procedure 01/16/25 Pre-op Diagnosis Localized swelling mass on head Post-op Diagnosis Same Procedure Performed right cheek mass excision Surgeon Tyrell Villalba MD Magistrate Assistant Lourdes Garcia PA-C Anesthesia MAC Description of Procedure Patient was seen in the preoperative holding area where the consent form was signed and the right cheek mass was marked. Patient was taken back to the operating room on the stretcher in the supine position. Time-out was performed with Anesthesia, surgeon, and staff agreeing on patient's name, site, and surgery to be performed. SCDs were placed the lower extremities and inflated. Antibiotics were given IV. After general anesthesia was administered the right cheek was prepped and draped in usual sterile fashion and I injected 2.5 cc of 1% lidocaine with epinephrine and 0.5% Marcaine plain for local anesthesia. I proceeded with making an elliptical incision around the suspected punctum and affected skin over the mass extending medially and laterally for expected dog ears to improve appearance upon closure. This was done with 15 blade scalpel through skin and dermis. Identified the cyst like mass and proceeded with circumferential dissection around the cyst with a combination of Littler scissors and 15 blade noting the mass had partially some fibers of the orbicularis oculi muscle. I irrigated with normal saline. Closure was done with 5-0 Monocryl for approximation of orbicular is and dermis. 5-0 Prolene was used for subcuticular closure. A dressing of Mastisol, Steri-Strips, 4 x 4 and Hypafix was then applied. The patient was awakened from anesthesia and transferred to the recovery room in stable condition. Complications: None Estimated blood loss: 2 cc Disposition: Patient tolerated the procedure well and will go home later today. Lourdes Garcia PA-C was essential for positioning, retraction, closure and dressing placement. [facility] Billing Surgery - Charge Forward: Surgery Billing ([id number] same for lourdes adding )
[2025-01-16] MEDS: ACETAMINOPHEN 500 MG TABLET 1000 MG PO (08:42)
--- NOTE | 2025-01-16 09:39 | P.PNAN_ITS ---
Anes - Initial Pre Proc Eval Procedure: Operation Date: 01/16/25 10:30 Proposed Procedures p Right Cheek Cystic Excision - Tyrell Villalba MD Date/Time: 01/16/25 09:39 Surgeon: Tyrell Villalba MD Pre Op Diagnosis: Localized swelling mass on head Patient Data Age: 19 Gender: M Height: 1.73 m Weight: 54.9 kg Last Vital Signs Temp 36.8 C 01/16/25 08:08 Pulse 74 01/16/25 08:08 Resp 18 01/16/25 08:08 BP 151/74 H 01/16/25 08:08 Pulse Ox 100 01/16/25 08:08 O2 Del Method Room Air 01/16/25 08:08 Allergies Allergy/AdvReac Type Severity Reaction Status Date / Time No Known Allergies Allergy Verified 01/16/25 08:56 Home Medications ?Medication ?Instructions ?Recorded ?Confirmed ?Type No Home Medications 06/02/24 01/16/25 H istory Patient hx anesthesia problems: none Family hx anesthesia problems: none Results Review: All pre-operative results and documents have been reviewed as part of the pre-o perative evaluation. [facility] Past Medical History Medical History Rib pain on right side Mass of face Low back pain Appendix abscess ADD (attention deficit disorder) Autism Acute pharyngitis Ear infection as COVID-19 January of 2019 Anxiety Autism spectrum disorder ADHD (attention deficit hyperactivity disorder) Back injury Has PT Surgical History Surgical History No history of previous surgery Family History Family History Mother ADHD Hypertension Depression Anxiety Arthritis Fracture Grandparent Diabetes mellitus Social History Social History Smoking status: Never smoker Tobacco type: e-cigarettes/vaping Alcohol intake: never Substance use: current Substance use type: marijuana Other substance usage details: vape Lack of Transportation: No Lack of Food: Never True Current Housing: I Have Housing Concerned About Future Housing: No Difficulty Paying Gas/Electric Bills: No Difficulty Paying for Meds: No Currently Unemployed: No Education: High School Diploma/GED Difficulty w/ Childcare or Family Care: No Living arrangements: with family Occupation/Education: student Gender identity (if verbalized by the patient): Male Spiritual care concerns: No Anes - Eval Final PreProcedure Day of Procedure 01/16/25 09:39 Patient weight: thin Heart: regular rate and rhythm Lungs: clear to auscultation Airway: Mallampati scale class II Neurological: alert and oriented Last oral intake: >/= 8 hours ASA classification: II Emergent: no Anesthetic plan: proceed Anesthesia type and monitoring: general GIVS and standard monitoring Results Review: All pre-operative results and documents have been reviewed as part of the pre- operative evaluation. Informed Consent: The patient's anesthetic plan and its attendant risks and benefits were discussed with the patient/family/POA. Questions were solicited and answers provided to the satisfaction of the patient/family/POA.
[2025-01-16] MEDS: ceFAZolin 2 GM in SODIUM CHLORIDE 0.9% IV 50 ML 100 ML IVPB (10:00)
--- NOTE | 2025-01-16 10:13 | S_PTH ---
PATIENT: Rafael Merritt LOC: [facility] U#:[id number] AGE/SX: 19/M ROOM: RE01/16/[address]: Tyrell Villalba MD : 2005 BED: DIS: 01/16/2025 SPEC #: [id number] RECD: 01/16/25 12:46 STATUS: MIRYAM REJohn #: [id number] SHAREE: 01/16/25 10:[address]: Tyrell Villalba DEPT: [facility] Surgical RECD BY: Colin Bal ENTERED: 01/16/25 12:47 SP TYPE: Surgical OTHR DR: Georgi Alicia MD Tissues: A - Cyst Procedures: Hematoxylin and Eosin Stain Gross and Microscopic Level 4
[2025-01-16] MEDS: LACTATED RINGERS 1,000 ML 30 ML IV CONT (10:32)
== END 2025-01-16 12:45 | disposition home or self-care (01) ==
PROVIDERS: PCP Family Medicine; Visit Provider Plastic Surgery
PROC: (CPT 13131; principal; 2025-01-16 10:30)
DX: L72.9 Follicular cyst of the skin and subcutaneous tissue, unspecified (principal)
CPT/HCPCS: 13131; 11442; 88305; J0690; A9270; J2003; J2250; J2704; J3010; J7120